=== PATIENT | female | born 1980 | race American Indian/Alaskan Native ===

== ENCOUNTER 2018-12-13 09:21 | Emergency (ER) | payer OTHER ==
[2018-12-13 09:21] VITALS: BMI 39.8
[2018-12-13 09:32] VITALS: BP 161/102; PULSE 78; RESP 20; TEMP 98.4; O2SAT 98
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
== END 2018-12-13 10:07 | disposition home or self-care (01) ==
LOC: C.ER 09:21
DX: S23.3XXA Sprain of ligaments of thoracic spine, initial encounter (principal); V79.50XA Passenger on bus injured in collision with unspecified motor vehicles in traffic accident, initial encounter